=== PATIENT | female | born 1970 | race Two or more races ===

== ENCOUNTER 2025-05-07 03:55 | Emergency (ER) | payer SELFPAY ==
[2025-05-07 03:56] VITALS: BMI 32.9
[2025-05-07 04:09] VITALS: BP 137/84; PULSE 75; RESP 17; TEMP 37; O2SAT 100
--- NOTE | 2025-05-07 04:25 | EDNOTE_ITS ---
ED Headache RME/HPI General Chief Complaint: Headache Stated Complaint: HEADACHE, DIZZY, VOMITING Time Seen by Provider: 05/07/25 04:26 Arrival date/time: 05/07/25 03:55 RME / HPI RME / HPI Narrative: Dr. Wright?s Main ED Evaluation: 55yo female with a history of DM presents to the ED for a chief complaint of a persistent posterior headache x 2 weeks. Patient states she's been dizzy for the last 2 days, reporting she's been unsteady on her feet. She denies any falls or injuries. Denies any fever, chills, N/V, or any other associated symptoms. Related Data Home Medications ?Medication ?Instructions ?Recorded ?Confirmed sitagliptin phosphate 50 1 tab PO BID 02/01/19 mg-metformin 1,000 mg tablet (Janumet) Previous Rx's ?Medication ?Instructions ?Recorded ferrous sulfate 325 mg (65 mg 325 mg PO QDAY #30 tabs 08/24/17 iron) tablet,delayed release Lactobacillus acidophilus 1 1,000 mmu cells PO QDAY #2 8 caps 02/03/19 billion cell capsule amoxicillin 875 mg-potassium 1 tab PO Q12H #56 tabs clavulanate 125 mg tablet (Augmentin) doxycycline monohydrate 100 mg 100 mg PO BID #28 caps 02/03/19 capsule tpfxsazxbu-bjwprvrkugrwk-tykhmfln 1 cap PO TID PRN nate n #20 caps 09/29/22 50 mg-300 mg-40 mg capsule (Fioricet) Allergies Allergy/AdvReac Type Severity Reaction Status Date / Time morphine Allergy Irritable Verified 09/29/22 03:55 Review of Systems Review of Systems Systems Reviewed: All systems reviewed, normal except as documented Past Medical History Past Medical History CARDIAC: Negative Cardiac Disorders or Congestive Heart Failure RESPIRATORY: Negative Chronic Obstructive Pulmonary Disease (COPD), Asthma, Bronchitis, Pneumonia or Tuberculosis GENITOURINARY: Negative Renal Disease MUSCULOSKELETAL: Positive Musculoskeletal Disorders ENDOCRINE: Positive Diabetes Mellitus Type 2; Negative Diabetes Mellitus Type 1 HEMATOLOGIC: Negative Sickle Cell Disease OTHER HISTORY: Negative Falls, Blood Transfusions or Anesthesia Reactions Social History SMOKING STATUS: Never smoker SUBSTANCE USE: does not use ED Exam Narrative Physical exam: Generally patient is alert and oriented x 3 in no obvious distress, heart regular rate and rhythm, lungs clear to auscultation equal bilaterally, abdomen soft bowel sounds present nondistended nontender, neurologic exam shows wugzfg-vk-jvqq movements bilaterally are intact with rapid alternating movements bilaterally intact. Pupils equal round reactive to light, no vertical nystagmus, no focal motor deficits., No ataxia Course Quality Measures none Orders Category Date Time Status CT head/brain wo con Stat Exams 05/07/25 04:42 Ordered BMP [Basic Metabolic Panel] Stat Lab 05/07/25 04:51 Completed CBC Stat Lab 05/07/25 04:51 Completed Vital Signs Vital signs: Vital Signs Temperature 98.6 F 05/07/25 04:09 Pulse Rate 75 05/07/25 04:09 Respiratory Rate 17 05/07/25 04:09 Blood Pressure 137/84 H 05/07/25 04:09 Pulse Oximetry (%) 100 05/07/25 04:09 Headache MDM Narrative [facility] Narrative:: Scribe Attestation: 05/07/25 Angela Allison am scribing for and in the presence of Dr. Wright. I interpreted all labs. There was no significant abnormality. Because the patient was having neurologic complaint with headache which was the dizziness a CAT scan of the brain has been ordered and is pending. I will have to sign this patient out to Dr. Fernández awaiting the CAT scan to be done and for the result. I do anticipate this patient to be discharged. Patient data External records reviewed:: [facility] (Per chart review, patient was seen here on 10/20/22 for conjunctivitis.) Clinical information provided by:: patient Social determinants that could affect healthcare access:: none Patient has the following chronic illnesses:: DM How is presenting disease/condition affected by chronic disease/condition?: uneffected by Evaluation data The following diagnostics were reviewed and interpreted by me:: lab results Lab and/or radiology exams considered but not ordered:: none Interpretation Summary: See [facility] Medications / Prescriptions Medications or Prescriptions considered but not ordered:: none Medication administrations:: none Consultations Consultation(s) initiated? (list below): No Diagnosis Differential diagnosis headache: other (See MDM) Most likely diagnosis given after review of the tests above:: final diagnosis pending at sign out Admission Indicated Admission indicated?: not indicated Admission Request Was there a request for admission?: No Disposition Plan Disposition Plan: other (specify) (Signed out to the next oncoming provider at 6 AM.) Discharge Plan Plan Patient Disposition: HOME (Self Care) Prescriptions/Referrals Prescriptions/Med Rec: No Action ferrous sulfate 325 mg (65 mg iron) tablet,delayed release (DR/EC) 325 mg PO QDAY Qty: 30 0RF Rx Instructions: do not break, crush, or chew tablet(s) Janumet 50-1,000 mg Tablet 1 tab PO BID amoxicillin-pot clavulanate [Augmentin] 875-125 mg tablet 1 tab PO Q12H Qty: 56 0RF doxycycline monohydrate 100 mg capsule 100 mg PO BID Qty: 28 0RF Lactobacillus acidophilus 1 billion cell capsule 1,000 mmu cells PO QDAY Qty: 28 0RF Rx Instructions: administer with a meal uyeoxwxhzt-qlaolepsuseqr-owwd [Fioricet] 50-300-40 mg capsule 1 cap PO TID PRN (Reason: pain) Qty: 20 0RF Problem List Clinical Impression: Headache Patient/Caregiver Discharge Instructions Education Materials: Self-Care for Headaches Additional Instructions: Take Tylenol 650 mg every 4 hours as needed for pain. Take ibuprofen 800 mg every 8 hours as needed for pain. Follow-up with your doctor as needed for further treatment and evaluation. Print Language: French Stand Alone Forms: Elise Award Info., Patient Portal Info Letter
--- NOTE | 2025-05-07 04:42 | XR_ITS ---
Examination: CT brain head without contrast. 2-D sagittal coronal reconstructions Date and time of exam: May 07, 2025, 0549 hours INDICATIONS: Headaches and altered mental status today CTDI: vol (mGy): 51.4 DLP: (mGycm): 1006 Technique: Multiple CT axial sections of the brain have been obtained, 5 mm slice thickness. Contrast has not been administered. 2-D sagittal, coronal reconstructions have been obtained Low dose protocols were performed. One or more of the following dose reduction techniques were used; automated exposure control, adjustment of the mA and/or KV according to patient size, use of iterative reconstruction technique. Findings: No significant ventricular enlargement. Intra-axial or extra-axial hemorrhage density is not seen. No mass effect or midline shift Basal cisterns are not remarkable. Fourth ventricle is midline. Cranial vault intact. Mild chronic ethmoid sinusitis Impression: Negative for acute hemorrhage, mass effect or midline shift Advise clinical correlation and follow-up accordingly
[2025-05-07 05:10] LABS: Basophils # (Auto) 0.0 Thou/mm3 (0.0-0.2); Basophils % (Auto) 1 % (0-2.5); Eosinophils # (Auto) 0.2 Thou/mm3 (0.0-0.5); Eosinophils % (Auto) 2 % (0-10); Hematocrit 44.6 % (36.0-46.0); Hemoglobin 14.7 g/dL (12.0-16.0); Immature Granulocytes Auto 0.04 Thou/mm3 (0.00-0.00); Lymphocytes # (Auto) 2.2 Thou/mm3 (1.0-4.8); Lymphocytes % (Auto) 26 % (10-50); Mean Corpuscular HGB Conc 33.0 g/dl (31.0-37.0); Mean Corpuscular Hemoglobin 28.6 pg (25.0-35.0); Mean Corpuscular Volume 87 fL (80-100); Monocytes # (Auto) 0.5 Thou/mm3 (0.0-0.8); Monocytes % (Auto) 6 % (0-12); Neutrophils # (Auto) 5.5 Thou/mm3 (1.8-7.7); Neutrophils % (Auto) 65 % (37-80); Nucleated Red Blood Cell # 0.00 Thou/mm3 (0.00-0.00); Nucleated Red Blood Cell % 0 /100 WBC (0); Platelet Count 215 Thou/mm3 (140-440); RDW Standard Deviation 46.2 fL (36.4-46.3); Red Blood Count 5.14 Miln/mm3 (4.00-5.20); White Blood Count 8.4 Thou/mm3 (3.6-11.0)
[2025-05-07 05:39] LABS: Anion Gap 11 (7-16); BUN/Creatinine Ratio 10 Ratio (12-20); Blood Urea Nitrogen 7 mg/dL (9-23); Calcium 9.5 mg/dL (8.3-10.6); Carbon Dioxide 27.0 mMol/L (20.0-31.0); Chloride 104 mMol/L (98-107); Creatinine (Component) 0.7 mg/dL (0.6-1.3); Estimated Creatinine Clearance 94.7 mL/min (>60); Glucose 158 mg/dL (74-106); Osmolality,Calculated 284 (275-295); Potassium 4.5 mMol/L (3.4-5.1); Sodium 142 mMol/L (136-145); eGFR > 60 See Note
== END 2025-05-07 05:45 | disposition home or self-care (01) ==
PROVIDERS: Emergency Provider Emergency Medicine
DX: R51.9 Headache, unspecified (principal)
CPT/HCPCS: 36415; 70450; 80048; 85025; 99283